=== PATIENT | male | born 1960 | race Caucasian/White ===

== ENCOUNTER 2017-09-29 07:40 | Day surgery (SDC) | payer OTHER ==
[2017-09-29] MEDS ORDERED: FENTAnyl 50 MCG/ML VIAL (11:33)
[2017-09-29] MEDS ORDERED: CEFAZOLIN 1 GM INJ (11:53)
[2017-09-29] MEDS ORDERED: LIDOCAINE 2% (SDV) 5 ML INJ (11:53)
[2017-09-29] MEDS ORDERED: ROCURONIUM 50 MG INJ (11:53)
[2017-09-29] MEDS ORDERED: PROPOFOL 40 ML (11:53)
[2017-09-29] MEDS ORDERED: SUCCINYLCHOLINE CHLORIDE 100 MG/5 ML SYG IV (11:53)
[2017-09-29] MEDS ORDERED: SUGAMMADEX SODIUM 200 MG/2 ML VIAL IV (12:26)
[2017-09-29] MEDS ORDERED: SOD CHLORIDE 0.9% IRR (12:30)
[2017-09-29] MEDS ORDERED: MITOMYCIN IRR (12:30)
[2017-09-29] MEDS ORDERED: HYDROmorphONE (0.2 MG/ML) 10ML SYG IV (13:00)
[2017-09-29] MEDS ORDERED: ONDANSETRON 4 MG INJ IV (13:00)
[2017-09-29] MEDS ORDERED: MEPERIDINE 25 MG INJ IV (13:00)
[2017-09-29] MEDS ORDERED: DIPHENHYDRAMINE 50 MG INJ IV (13:00)
[2017-09-29] MEDS ORDERED: METOCLOPRAMIDE 10 MG INJ IV (13:00)
[2017-09-29] MEDS ORDERED: FENTAnyl 50 MCG/ML VIAL IV ×2 (13:00)
[2017-09-29] MEDS: HYDROmorphONE (0.2 MG/ML) 10ML SYG IV ×4 (13:04→13:52)
== END 2017-09-29 14:54 | disposition home or self-care (01) ==
LOC: SDS 07:40
DX: C67.9 Malignant neoplasm of bladder, unspecified (principal); I10 Essential (primary) hypertension; E66.01 Morbid (severe) obesity due to excess calories; Z68.35 Body mass index [BMI] 35.0-35.9, adult; F17.200 Nicotine dependence, unspecified, uncomplicated
CPT/HCPCS: 52235; 88305